=== PATIENT | male | born 1965 | race Hispanic/Latino ===

== ENCOUNTER 2019-03-02 09:25 | Day surgery (SDC) | payer OTHER ==
[2019-03-01 15:45] VITALS: BP 147/81
[2019-03-01 15:57] LABS: EOSINOPHILS % (AUTO) 1.5 % (0.0-8.0); HEMATOCRIT 48.4 % (42-54); LYMPHOCYTES % (AUTO) 24.7 % (21.0-51.0); MEAN CORPUSCULAR HEMOGLOBIN 27.2 pg (27.0-33.0); MEAN CORPUSCULAR HGB CONC 32.7 g/dL (32.0-36.0); MONOCYTES % (AUTO) 9.8 % (3.0-13.0); PLATELET COUNT (AUTO) 225 K/uL (130-400); RED BLOOD CELL COUNT(AUTO) 5.83 MIL/uL (4.50-6.20); RED CELL DISTRIBUTION WIDTH 13.7 % (11.0-15.5); WHITE BLOOD COUNT (AUTO) 7.9 K/uL (4.8-10.8)
[2019-03-01 16:04] LABS: CREATININE 1.1 mg/dL (0.5-1.5); POTASSIUM 4.5 mmol/L (3.5-5.1)
[~2019-03-02] VITALS: Ht 167.6 cm; Wt 109.1 kg
[2019-03-02] VITALS (18 sets, daily range): BP systolic 107–125; BP diastolic 59–81
[~2019-03-02 09:25] MED LIST: CEFAZOLIN 3GM /D5W 100ML 100 ML IV PRN; GABA-529 PO
[2019-03-02] MEDS ORDERED: LACTATED RINGERS 1000ML 1,000 ML IV ONE (10:22)
[2019-03-02] MEDS ORDERED: EPINEPHRINE 1 MG/ML 30ML VIAL IJ ONE (10:34)
--- NOTE | 2019-03-02 10:53 | NUR ---
POTENTIAL FOR INFECTION: SHAVED LEFT SHOULDER/ UPPER ARM PER GUADALUPE NIETO, FOLLOWED BY WIPING WITH NOAH: 2% CHLORHEXIDINE GLUCONATE CLOTH PATIENTS PRE-OP PREP SKIN.
[2019-03-02] MEDS ORDERED: CEFAZOLIN SODIUM 1 GM VIAL ONE ×2 (13:21→15:21)
[2019-03-02] MEDS ORDERED: PROPOFOL 10 MG/ML 20ML VIAL IV ONE ×2 (13:56→16:14)
[2019-03-02] MEDS ORDERED: MIDAZOLAM HCL 1 MG/ML 2ML VIAL ONE (13:56)
[2019-03-02] MEDS ORDERED: LIDOCAINE PF 2% 5ML ABBOJECT ONE (13:56)
[2019-03-02] MEDS ORDERED: ONDANSETRON HCL 4 MG/2 ML VIAL ONE (13:56)
[2019-03-02] MEDS ORDERED: ROPIVACAINE 0.5% 5MG/ML 30ML IJ ONE (13:56)
[2019-03-02] MEDS ORDERED: ROCURONIUM 10MG/1ML SYR 10 MG/ML ML ONE ×2 (13:57→14:46)
[2019-03-02] MEDS ORDERED: FENTANYL CITRATE PF 50 MCG/1 ML 2ML VIAL ONE ×2 (13:58→15:21)
[2019-03-02] MEDS ORDERED: DEXAMETHASONE SOD PHOSPHATE 4 MG/ML 1ML VIAL ONE (14:50)
[2019-03-02] MEDS ORDERED: NEOSTIGMINE 5MG/5ML SYR IV ONE (16:06)
[2019-03-02] MEDS ORDERED: GLYCOPYRROLATE 1 MG/5 ML SYRINGE ONE (16:06)
[2019-03-02] MEDS ORDERED: KETOROLAC TROMETHAMINE 30MG/ML ONE (16:09)
[2019-03-02] MEDS ORDERED: CEPH500B PO (16:35)
[2019-03-02] MEDS ORDERED: HYDR-4457 PO (16:35)
[2019-03-02] MEDS ORDERED: NAPR-1023 PO (16:35)
--- NOTE | 2019-03-02 17:35 | NUR ---
ASSESSMENT RECEIVED PT FROM PACU STAFF LUIS ARORA. PT AAOX3. LEFT ARM IN SLING. MOVING FINGERS. ICE PACK APPLIED TO LEFT SHOULDER. INSTRUCTED PTS ON HOME USE OF ICE PACK BOTH VERBALIZED UNDERSTANDING.
--- NOTE | 2019-03-02 18:40 | NUR ---
DISCHARGE ORAL AND WRITTEN DISCHARGE INSTRUCTIONS GIVEN TO PT AND PTS ALONG WITH PRESCRIPTIONS. SLING IN PLACE TO LEFT SHOULDER. DENIES ANY PAIN, DISCOMFORT. NO OTHER QUESTIONS AT THIS TIME.
== END 2019-03-02 18:45 | disposition home or self-care (01) ==
LOC: DAH 09:25
PROVIDERS: ATTEND Orthopaedic Surgery
DX: M25.812 Other specified joint disorders, left shoulder (principal); M75.112 Incomplete rotator cuff tear or rupture of left shoulder, not specified as traumatic; M19.012 Primary osteoarthritis, left shoulder; E66.01 Morbid (severe) obesity due to excess calories; Z98.890 Other specified postprocedural states; Z79.899 Other long term (current) drug therapy
CPT/HCPCS: 29822; 29824; 29826; 36415; 64415; 80048; 85025; A4565; A4600; A4649 ×3; A4930; A6204; G0168; J0171; J0690 ×2; J1100; J1885; J2001; J2250; J2405; J2704 ×2; J2710; J2795; J3010 ×2; J3490; J7030; J7120